=== PATIENT | male | born 1995 | race Hispanic/Latino ===

== ENCOUNTER 2018-08-19 20:51 | Emergency (ER) | payer OTHER ==
[2018-08-19] MEDS ORDERED: DEXAMETHASONE SOD PHOSPHATE 10MG/ML 1ML VIAL ONE (21:18)
[2018-08-19] MEDS ORDERED: IPRATROPIUM/ALBUTEROL SULFATE 3 ML SOLUTION IH ONE ×2 (21:28→22:20)
[2018-08-19 21:49] LABS: RAPID GROUP A STREP NEGATIVE (NEGATIVE)
[2018-08-19] MEDS ORDERED: ACETAMINOPHEN 325 MG TAB ONE (22:10)
== END 2018-08-20 00:24 | disposition home or self-care (01) ==
LOC: EEVIPCON 20:51 → EDH 20:51
DX: J45.901 Unspecified asthma with (acute) exacerbation (principal); J20.8 Acute bronchitis due to other specified organisms; Z88.6 Allergy status to analgesic agent
CPT/HCPCS: 71046; 87804 ×2; 87880; 94640 ×2; 96372; 99285; J1100